=== PATIENT | female | born 1955 | race African-American/Black ===

== ENCOUNTER 2023-10-28 23:55 | Emergency (ER) | payer MEDICARE, OTHER ==
[~2023-10-28] VITALS: Ht 162.6 cm; Wt 72.0 kg
[2023-10-29 00:23] VITALS: TEMP 98.1
[2023-10-29 04:24] LABS: BASOPHILS % (AUTO) 0.8 % (0.0-2.0); EOSINOPHILS % (AUTO) 2.8 % (1.0-6.0); HEMATOCRIT 33.5 % (36-46); HEMOGLOBIN 11.1 g/dL (12.0-16.0); LYMPHOCYTES # (AUTO) 2.1 K/uL (1.0-4.8); LYMPHOCYTES % (AUTO) 30.5 % (22.0-44.0); MEAN CORPUSCULAR HEMOGLOBIN 28.7 pg (26.0-34.0); MEAN CORPUSCULAR HGB CONC 33.2 G/dL (31.0-37.0); MEAN CORPUSCULAR VOLUME 86 fL (80-100); MONOCYTES # (AUTO) 0.7 K/uL (0.1-1.0); MONOCYTES % (AUTO) 10.9 % (2.0-9.0); NEUTROPHILS # (AUTO) 3.8 K/uL (1.8-7.7); PLATELET COUNT (AUTO) 103 K/uL (150-450); RED BLOOD CELL COUNT(AUTO) 3.88 MIL/uL (4.00-5.20); RED CELL DISTRIBUTION WIDTH 15.8 % (11.5-14.5); WHITE BLOOD COUNT (AUTO) 6.8 K/uL (4.5-11.0)
[2023-10-29 05:18] LABS: CALCIUM, TOTAL 8.9 mg/dL (8.8-10.5); CREATININE 1.33 mg/dL (0.60-1.30); POTASSIUM 4.1 mmol/L (3.5-5.1)
[2023-10-29 05:23] LABS: ALBUMIN 2.7 g/dL (3.4-5.0); BILIRUBIN,TOTAL 0.3 mg/dL (0.1-1.0); TOTAL PROTEIN, SERUM 7.2 g/dL (6.4-8.2)
[2023-10-29 06:06] LABS: GLUCOMETER DEV NAME(LOC) ER.6; GLUCOSE,POINT OF CARE 203 MG/DL (70-110)
[2023-10-29 08:48] VITALS: BP 113/70; PULSE 76; RESP 18
== END 2023-10-29 08:30 | disposition home or self-care (01) ==
LOC: EMS 23:56
DX: R73.9 Hyperglycemia, unspecified (principal); R56.9 Unspecified convulsions; I10 Essential (primary) hypertension; F20.9 Schizophrenia, unspecified
CPT/HCPCS: 80053; 82962; 85025; 99283

== ENCOUNTER 2024-06-07 16:41 | Inpatient (IN) | payer MEDICARE, OTHER ==
[~2024-06-07] VITALS: Ht 162.6 cm; Wt 83.2 kg
[~2024-06-07 16:41] MED LIST: ASCO500T20 PO; ASPI-1450 PO; BENZ0.5T52 PO; CALC-884 PO; CHOL25TA4 PO; DIVA-112 PO; FURO20TA4 PO; LEVE-71 PO; LEVO750T68 PO; METO25 PO; MIRT-92 PO; POTA-92 PO; QUET100T34 PO; ZINC220T4 PO
[2024-06-07 17:15] LABS: MONOCYTES # (AUTO) 0.9 K/uL (0.1-1.0)
[2024-06-07 17:18] LABS: BASOPHILS % (AUTO) 0.3 % (0.0-2.0); EOSINOPHILS % (AUTO) 0.1 % (1.0-6.0); HEMATOCRIT 43.8 % (36-46); HEMOGLOBIN 13.6 g/dL (12.0-16.0); LYMPHOCYTES % (AUTO) 14.5 % (22.0-44.0); MEAN CORPUSCULAR HEMOGLOBIN 29.5 pg (26.0-34.0); MEAN CORPUSCULAR VOLUME 95 fL (80-100); NEUTROPHILS # (AUTO) 4.7 K/uL (1.8-7.7); NEUTROPHILS % (AUTO) 71.1 % (40.0-70.0); PLATELET COUNT (AUTO) 86 K/uL (150-450); WHITE BLOOD COUNT (AUTO) 6.6 K/uL (4.5-11.0)
[2024-06-07] MEDS ORDERED: NOREPINEPHRINE 8 MG/0.9 % NACL 250 ML IV ONE (17:25)
[2024-06-07] MEDS ORDERED: DOPamine 400MG/D5W[STANDARD] 250 ML IV ONE (17:25)
[2024-06-07 17:36] LABS: ALANINE AMINOTRANSFERASE 860 U/L (12-78); ALKALINE PHOSPHATASE 132 U/L (46-116); ANION GAP 17 mmol/L (8-16); BILIRUBIN,TOTAL 1.2 mg/dL (0.1-1.0); CALCIUM, TOTAL 8.7 mg/dL (8.8-10.5); CARBON DIOXIDE 19 mmol/L (22-29); CHLORIDE 95 mmol/L (98-107); CREATININE 4.32 mg/dL (0.60-1.30); GLOMERULAR FILTR. RATE CALC 12 mL/min (>60); GLUCOSE,RANDOM 93 mg/dL (70-110); SODIUM SERUM 131 mmol/L (136-145); TOTAL PROTEIN, SERUM 7.5 g/dL (6.4-8.2)
[2024-06-07] MEDS: EPINEPHrine 5 MG in DEXTROSE 5%-WATER 245 ML IV PRN (17:36)
[2024-06-07] MEDS: NOREPINEPHRINE 8 MG/0.9 % NACL 250 ML IV PRN (17:36)
[2024-06-07 17:37] LABS: ASPARTATE AMINOTRANSFERASE 1923 U/L (15-37)
[2024-06-07] MEDS: SODIUM CHLORIDE 0.9% 1,000 ML IV ONE (17:37)
[2024-06-07 17:39] LABS: AMMONIA < 10 umol/L (11-32); LACTIC ACID 9.2 mmol/L (0.4-2.0); POTASSIUM 9.1 mmol/L (3.5-5.1); TROPONIN I-HIGH SENSITIVITY 86 ng/L (<51); UREA NITROGEN, BLOOD 110 mg/dL (7-18)
[2024-06-07] MEDS ORDERED: SODIUM BICARBONATE [ADULT] 8.4% 50 MEQ/50 ML SYRINGE IVP ONE (17:45)
[2024-06-07] MEDS ORDERED: DEXTROSE 50%-WATER 25 GM/50 ML SYRINGE IVP ONE (17:45)
[2024-06-07] MEDS: INSULIN REGULAR, HUMAN 100 UNITS/ML IVP ONE (17:45)
[2024-06-07] MEDS ORDERED: CALCIUM GLUCONATE 0.465 MEQ/ML 10 ML VIAL ONE (17:45)
[2024-06-07] MEDS: CALCIUM GLUCONATE 100 MG/ML 10 ML IVP ONE (17:55)
[2024-06-07] MEDS: ALBUTEROL SULFATE 2.5 MG/0.5 ML NEB SOLUTION NEB ONE (17:55)
[2024-06-07] MEDS: DEXTROSE 50%-WATER 25 GM/50 ML SYRINGE IVP ONE (17:59)
[2024-06-07] MEDS: EPINEPHrine 1:10,000 [1 MG/10 ML] SYRINGE IVP ONE (18:00)
[2024-06-07] MEDS: SODIUM BICARBONATE [ADULT] 8.4% 50 MEQ/50 ML SYRINGE IVP ONE ×2 (18:00→22:20)
[2024-06-07] MEDS ORDERED: ROCURONIUM BROMIDE 10 MG/ML 5 ML VIAL ONE (18:06)
[2024-06-07] MEDS: FUROSEMIDE 40 MG/4 ML VIAL IVP ONE (18:13)
[2024-06-07] MEDS ORDERED: PROPOFOL 1000 MG/ISO-OSM 100 ML IV PRN (18:30)
[2024-06-07 19:00] VITALS: PULSE 78; PULSE 79; RESP 18; O2SAT 99
[2024-06-07] MEDS ORDERED: ACETAMINOPHEN 325 MG TABLET PO PRN (19:00)
[2024-06-07] MEDS ORDERED: BISACODYL 10 MG RECTAL RECTAL SUPPOSITORY PR PRN (19:00)
[2024-06-07] MEDS ORDERED: ONDANSETRON HCL 4 MG/2 ML VIAL IVP PRN (19:00)
[2024-06-07 19:27] LABS: PROTHROMBIN TIME 29.4 SEC (9.4-11.6)
[2024-06-07] MEDS: MIDAZOLAM HCL 100 MG in SODIUM CHLORIDE 0.9% 180 ML IV PRN (19:38)
[2024-06-07] MEDS: VASOPRESSIN 40 UNITS in DEXTROSE 5%-WATER 98 ML IV PRN (19:45)
[2024-06-07] MEDS: VANCOMYCIN 1.5 GM/WATER(PEG) 300 ML IV ONE (20:16)
[2024-06-07] MEDS: PIPERACILLIN/TAZO 3.375 GM/D5W 50 ML IV ONE ×2 (20:16→20:56)
[2024-06-07] MEDS: HYDROCORTISONE SOD SUCC 100 MG/2 ML VIAL IVP ONE (20:17)
[2024-06-07 20:41] LABS: BASE EXCESS,VENOUS BLOOD GAS -21.3 (-2.4-2.3); HCO3,VENOUS BLOOD GAS 8.2 (21.0-28.0); PCO2,VENOUS BLOOD GAS 71 (40-45); PH,VENOUS BLOOD GAS 6.859 (7.360-7.410); SOURCE, BLOOD GAS VENOUS; TEMPERATURE, FAHRENHEIT, BG 98.6 FAHREN (96.0-98.6); TOTAL HEMOGLOBIN,VENOUS BGAS 14.5 (12.0-18.0)
[2024-06-07 20:42] LABS: SITE, BLOOD GAS CENTRAL LINE
[2024-06-07] MEDS: CHLORHEXIDINE GLUCONATE 2% TOWELETTE [2'S/6'S] TP SCH (21:14)
[2024-06-07 21:44] LABS: TROPONIN I-HIGH SENSITIVITY 179 ng/L (<51)
[2024-06-07 22:06] LABS: APPEARANCE,URINE HAZY (CLEAR); BILIRUBIN,URINE NEGATIVE (NEGATIVE); COLOR,URINE YELLOW (YELLOW); GLUCOSE, URINE (UA) NEGATIVE (NEGATIVE); KETONES,URINE TRACE mg/dL (NEGATIVE); LEUKOCYTE ESTERASE ,URINE MODERATE (NEGATIVE); NITRATE,URINE NEGATIVE (NEGATIVE); OCCULT BLOOD,URINE SMALL (NEGATIVE); PROTEIN,URINE 30-70 mg/dL (NEGATIVE)
[2024-06-07 22:13] LABS: ALCOHOL, URINE DRUG SCREEN NEGATIVE (NEGATIVE); AMPHET/METH SCREEN,URINE NEGATIVE (NEGATIVE); BARBITURATE SCREEN, URINE NEGATIVE (NEGATIVE); BENZODIAZEPINES SCREEN,URINE NEGATIVE (NEGATIVE); CANNABINOID SCREEN,URINE NEGATIVE (NEGATIVE); COCAINE SCREEN,URINE NEGATIVE (NEGATIVE); METHADONE SCREEN, URINE NEGATIVE (NEGATIVE); OPIATE SCREEN,URINE NEGATIVE (NEGATIVE); PHENCYCLIDINE SCREEN,URINE NEGATIVE (NEGATIVE)
[2024-06-07 22:13] LABS: BASE EXCESS,VENOUS BLOOD GAS -23.6 (-2.4-2.3); HCO3,VENOUS BLOOD GAS 6.9 (21.0-28.0); PCO2,VENOUS BLOOD GAS 59 (40-45); SOURCE, BLOOD GAS VENOUS; TEMPERATURE, FAHRENHEIT, BG 93.9 FAHREN (96.0-98.6); TOTAL HEMOGLOBIN,VENOUS BGAS 14.3 (12.0-18.0)
[2024-06-07 22:19] LABS: SITE, BLOOD GAS CENTRAL LINE
[2024-06-07 22:30] VITALS: PULSE 80; RESP 24; O2SAT 92
[2024-06-07] MEDS: SODIUM BICARBONATE 150 MEQ in DEXTROSE 5%-WATER 1,000 ML IV SCH (22:50)
[2024-06-07 22:58] LABS: BACTERIA,URINE Many /HPF (None Seen); CALCIUM OXALATE CRYSTALS,UR Few /LPF (None Seen); RBC,URINE 0-2 /HPF (0-2); SQUAMOUS EPITHELIAL CELL,UR Rare /LPF (None Seen)
[2024-06-07 23:40] VITALS: BP 115/78; PULSE 70; RESP 24; TEMP 92.9
[2024-06-07 23:51] VITALS: BP 115/78; PULSE 74; RESP 24
[2024-06-08] VITALS (24 sets, daily range): BP systolic 82–129; BP diastolic 50–88; PULSE 70–109; RESP 22–31; TEMP 89–96.2; O2SAT 0–100
[2024-06-08] MEDS: HEPARIN SODIUM,PORCINE 100 UNITS/ML 5 ML VIAL IVP ONE ×2 (03:43)
[2024-06-08] MEDS: PIPERACILLIN SODIUM/TAZOBACTAM 2.25 GM in DEXTROSE 5%-WATER 50 ML IV SCH (05:30)
[2024-06-08 06:18] LABS: MEAN CORPUSCULAR HEMOGLOBIN 30.2 pg (26.0-34.0); MEAN CORPUSCULAR HGB CONC 31.7 G/dL (31.0-37.0); MEAN CORPUSCULAR VOLUME 95 fL (80-100); PLATELET COUNT (AUTO) 49 K/uL (150-450); RED CELL DISTRIBUTION WIDTH 18.3 % (11.5-14.5)
[2024-06-08 06:26] LABS: CALCIUM, TOTAL 7.8 mg/dL (8.8-10.5); CREATININE 2.84 mg/dL (0.60-1.30); POTASSIUM 5.4 mmol/L (3.5-5.1)
[2024-06-08 06:29] LABS: WHITE BLOOD COUNT (AUTO) 9.5 K/uL (4.5-11.0)
[2024-06-08] MEDS ORDERED: EPINEPHrine 5 MG in DEXTROSE 5%-WATER 245 ML IV PRN (06:30)
[2024-06-08 06:48] LABS: LACTIC ACID 9.4 mmol/L (0.4-2.0)
[2024-06-08 06:56] LABS: ABG BASE EXCESS -10.5 mmol/L (-2.0-3.0); ABG HCO3 16.4 mmol/L (22.0-26.0); ABG METHEMOGLOBIN 0.8 % (0.0-1.5); ABG OXYGEN CONTENT 16.3 mL/dL (15.0-23.0); ABG OXYHEMOGLOBIN 80.5 % (94.0-100.0); ABG PCO2 36 mmHg (35-45); ABG PH 7.275 (7.35-7.450); ABG TOTAL HEMOGLOBIN 14.4 G/dL (12.0-18.0); SOURCE, BLOOD GAS ARTERIAL
[2024-06-08 06:57] LABS: PO2, ARTERIAL BG 42.8 mmHg (79.0-87.0)
[2024-06-08 06:58] LABS: ALLEN TEST, BLOOD GAS POS; O2 DEVICE,BLOOD GAS VENTILATOR (ROOM AIR); SITE, BLOOD GAS RT BRACHIAL; VT, ABG 420 ml
[2024-06-08 06:59] LABS: PEEP,BG 5 cm H2O
[2024-06-08 07:20] LABS: BAND NEUTROPHILS % (MANUAL) 2 % (0-5); LYMPHOCYTES % (MANUAL) 3 % (22-44); MONOCYTES % (MANUAL) 11 % (2-9); SEGMENTED NEUTROPHILS % 84 % (40-70); TOTAL CELLS COUNTED 100
[2024-06-08] MEDS ORDERED: NOREPINEPHRINE 8 MG/0.9 % NACL 250 ML IV ONE (07:40)
[2024-06-08] MEDS: NOREPINEPHRINE 8 MG/0.9 % NACL 250 ML IV PRN (07:57)
[2024-06-08] MEDS: PANTOPRAZOLE SODIUM 40 MG/VIAL IVP SCH (09:40)
[2024-06-08 09:51] LABS: SOURCE, BLOOD GAS ARTERIAL
[2024-06-08 10:03] LABS: ALBUMIN 1.9 g/dL (3.4-5.0); BILIRUBIN,TOTAL 1.9 mg/dL (0.1-1.0); CALCIUM, TOTAL 7.7 mg/dL (8.8-10.5); CREATININE 3.08 mg/dL (0.60-1.30); MAGNESIUM 2.4 mg/dL (1.80-2.40); PHOSPHORUS 6.4 mg/dL (2.5-4.9); TOTAL PROTEIN, SERUM 5.2 g/dL (6.4-8.2)
[2024-06-08] MEDS: ALBUMIN HUMAN 25%-25GM/100ML 100 ML IV ONE (10:08)
[2024-06-08] MEDS: PHENYLEPHRINE 200 MG/D5%-WATER 250 ML IV PRN (10:46)
[2024-06-08] MEDS: VASOPRESSIN 40 UNITS in DEXTROSE 5%-WATER 98 ML IV PRN (10:48)
[2024-06-08] MEDS: MIDAZOLAM HCL 100 MG in SODIUM CHLORIDE 0.9% 180 ML IV PRN (11:38)
[2024-06-08] MEDS ORDERED: HEPARIN SODIUM,PORCINE 1,000 UNITS/ML VIAL IVP ONE (12:00)
[2024-06-08] MEDS: EPINEPHrine 5 MG in DEXTROSE 5%-WATER 245 ML IV PRN (12:27)
[2024-06-08] MEDS ORDERED: NOREPINEPHRINE 8 MG/0.9 % NACL 250 ML IV PRN (12:30)
[2024-06-08] MEDS ORDERED: PHENYLEPHRINE 200 MG/D5%-WATER 250 ML IV PRN (12:30)
[2024-06-08] MEDS ORDERED: VASOPRESSIN 40 UNITS in DEXTROSE 5%-WATER 98 ML IV PRN (12:30)
[2024-06-08] MEDS: *CLINICAL-CEFEPIME DOSING CLINICAL ONE (12:39)
[2024-06-08 13:06] LABS: GLUCOMETER DEV NAME(LOC) ERT.5; GLUCOSE,POINT OF CARE 178 MG/DL (70-110)
[2024-06-08] MEDS ORDERED: VANCOMYCIN 1GM/WATER(PEG/NADA) 200 ML IV PRN (13:45)
[2024-06-08] MEDS ORDERED: SODIUM CHLORIDE 0.9% 250 ML IV ONE (14:21)
[2024-06-08] MEDS: VANCOMYCIN 1GM/WATER(PEG/NADA) 200 ML IV ONE (14:29)
[2024-06-08] MEDS: DOPamine 400MG/D5W[STANDARD] 250 ML IV PRN (15:09)
[2024-06-08 15:54] LABS: ABG BASE EXCESS -16.3 mmol/L (-2.0-3.0); ABG CARBOXYHEMOGLOBIN 0.3 % (0.0-1.5); ABG HCO3 12.4 mmol/L (22.0-26.0); ABG METHEMOGLOBIN 0.2 % (0.0-1.5); ABG OXYGEN SATURATION 99.8 % (95.0-98.0); ABG OXYHEMOGLOBIN 99.3 % (94.0-100.0); ABG PCO2 45 mmHg (35-45); ABG TOTAL HEMOGLOBIN 12.3 G/dL (12.0-18.0); PO2, ARTERIAL BG 303.8 mmHg (79.0-87.0); TEMPERATURE, FAHRENHEIT, BG 94.5 FAHREN (96.0-98.6)
[2024-06-08 15:55] LABS: ABG A-A DIFF O2 370.3 mmHg (10-20.0); ABG PH 7.096 (7.35-7.450); O2 DEVICE,BLOOD GAS VENTILATOR (ROOM AIR); SITE, BLOOD GAS ARTERIAL LINE
[2024-06-08 15:56] LABS: PEEP,BG 8 cm H2O; SPONTANEOUS VT, BG 407 ml; VT, ABG 420 ml
[2024-06-08] MEDS: MetroNIDAZOLE 500 MG/NACL 100 ML IV SCH (16:57)
[2024-06-08] MEDS: CEFEPIME HCL 1 GM in DEXTROSE 5%-WATER 50 ML IV SCH (17:34)
[2024-06-08] MEDS ORDERED: SODIUM CHLORIDE 0.9% 2,000 ML ONE (18:21)
[2024-06-08 20:13] LABS: ABG A-A DIFF O2 262.2 mmHg (10-20.0); ABG BASE EXCESS -14.5 mmol/L (-2.0-3.0); ABG CARBOXYHEMOGLOBIN 0.5 % (0.0-1.5); ABG HCO3 14.1 mmol/L (22.0-26.0); ABG METHEMOGLOBIN 0.3 % (0.0-1.5); ABG OXYGEN CONTENT 16.7 mL/dL (15.0-23.0); ABG OXYGEN SATURATION 97.4 % (95.0-98.0); ABG OXYHEMOGLOBIN 96.6 % (94.0-100.0); ABG PCO2 26 mmHg (35-45); ABG PH 7.292 (7.35-7.450); ABG TOTAL HEMOGLOBIN 12.2 G/dL (12.0-18.0); O2 DEVICE,BLOOD GAS VENT (ROOM AIR); PEEP,BG 8 cm H2O; PO2, ARTERIAL BG 70.9 mmHg (79.0-87.0); SITE, BLOOD GAS ARTERIAL LINE; SOURCE, BLOOD GAS ARTERIAL; VT, ABG 450 ml
[2024-06-08] MEDS: EPINEPHrine 10 MG in DEXTROSE 5%-WATER 240 ML IV PRN (21:34)
[2024-06-08 22:02] LABS: CALCIUM, TOTAL 6.8 mg/dL (8.8-10.5); CREATININE 2.4 mg/dL (0.60-1.30); MAGNESIUM 1.8 mg/dL (1.80-2.40); PHOSPHORUS 4.6 mg/dL (2.5-4.9); POTASSIUM 4.9 mmol/L (3.5-5.1)
[2024-06-08] MEDS ORDERED: DEXTROSE 50%-WATER 25 GM/50 ML SYRINGE IVP PRN (23:15)
[2024-06-08] MEDS: POTASSIUM CHLORIDE 15 MEQ in NXSTAGE RFP-402 K0/CA3 5,000 ML IRRIG PRN (23:53)
[2024-06-09] VITALS (9 sets, daily range): BP systolic 96–118; BP diastolic 52–71; PULSE 64–78; RESP 22–30; TEMP 84.7–92.5; O2SAT 0–100
[2024-06-09] MEDS: SODIUM BICARBONATE 75 MEQ in SODIUM CHLORIDE 0.45% 1,000 ML IV SCH (02:05)
[2024-06-09] MEDS: NOREPINEPHRINE BITARTRATE 16 MG in SODIUM CHLORIDE 0.9% 234 ML IV PRN (03:04)
[2024-06-09 06:17] LABS: HEMATOCRIT 42.4 % (36-46); HEMOGLOBIN 13.5 g/dL (12.0-16.0); MEAN CORPUSCULAR HEMOGLOBIN 30.2 pg (26.0-34.0); MEAN CORPUSCULAR HGB CONC 31.9 G/dL (31.0-37.0); MEAN CORPUSCULAR VOLUME 95 fL (80-100); PLATELET COUNT (AUTO) 22 K/uL (150-450); RED BLOOD CELL COUNT(AUTO) 4.48 MIL/uL (4.00-5.20); RED CELL DISTRIBUTION WIDTH 18.9 % (11.5-14.5)
[2024-06-09 06:20] LABS: WHITE BLOOD COUNT (AUTO) 8.7 K/uL (4.5-11.0)
[2024-06-09] MEDS: INSULIN LISPRO 100 UNITS/ML SQ PRN (06:21)
[2024-06-09 06:35] LABS: TROPONIN I-HIGH SENSITIVITY 256 ng/L (<51)
[2024-06-09 06:37] LABS: ALBUMIN 2.5 g/dL (3.4-5.0); BILIRUBIN,TOTAL 4.3 mg/dL (0.1-1.0); CREATININE 1.6 mg/dL (0.60-1.30); POTASSIUM 4.6 mmol/L (3.5-5.1); TOTAL PROTEIN, SERUM 5.6 g/dL (6.4-8.2)
[2024-06-09 06:41] LABS: GLUCOMETER DEV NAME(LOC) ICUN.5; GLUCOSE,POINT OF CARE 312 MG/DL (70-110)
[2024-06-09 06:41] LABS: GLUCOMETER DEV NAME(LOC) ICUN.5; GLUCOSE,POINT OF CARE 314 MG/DL (70-110)
[2024-06-09 08:20] LABS: BAND NEUTROPHILS % (MANUAL) 15 % (0-5); LYMPHOCYTES % (MANUAL) 5 % (22-44); MONOCYTES % (MANUAL) 9 % (2-9); SEGMENTED NEUTROPHILS % 71 % (40-70); TOTAL CELLS COUNTED 100
[2024-06-09 08:21] LABS: MAGNESIUM 1.7 mg/dL (1.80-2.40); PHOSPHORUS 2.9 mg/dL (2.5-4.9)
[2024-06-09] MEDS: VANCOMYCIN 750 MG/WATER(PEG) 150 ML IV SCH (09:19)
[2024-06-09] MEDS ORDERED: MAGNESIUM SULFATE 1 GM in DEXTROSE 5%-WATER 50 ML IV ONE (10:45)
[2024-06-09] MEDS ORDERED: PIPERACILLIN/TAZO 3.375 GM/D5W 50 ML IV SCH (12:00)
[2024-06-09] MEDS ORDERED: CEFEPIME HCL 1 GM in DEXTROSE 5%-WATER 50 ML IV SCH (13:00)
== END 2024-06-09 14:45 | DRG 871 ==
LOC: EMS 16:42 → EDBD 16:42 → EDH 18:59 → ICU 06-08 13:21
PROVIDERS: ADMIT Internal Medicine; ATTEND Internal Medicine
PROC: 5A1945Z Respiratory Ventilation, 24-96 Consecutive Hours (ICD-10-PCS; principal; 2024-06-07)
PROC: 0BH17EZ Insertion of Endotracheal Airway into Trachea, Via Natural or Artificial Opening (ICD-10-PCS; 2024-06-07)
PROC: 5A1D70Z Performance of Urinary Filtration, Intermittent, Less than 6 Hours Per Day (ICD-10-PCS; 2024-06-07)
PROC: 5A12012 Performance of Cardiac Output, Single, Manual (ICD-10-PCS; 2024-06-08)
DX: A41.9 Sepsis, unspecified organism (principal); G92.8 Other toxic encephalopathy; I50.23 Acute on chronic systolic (congestive) heart failure; J96.01 Acute respiratory failure with hypoxia; K72.00 Acute and subacute hepatic failure without coma; N17.0 Acute kidney failure with tubular necrosis; R65.21 Severe sepsis with septic shock; I47.21 Torsades de pointes; E87.1 Hypo-osmolality and hyponatremia; E87.20 Acidosis, unspecified; I13.0 Hypertensive heart and chronic kidney disease with heart failure and stage 1 through stage 4 chronic kidney disease, or unspecified chronic kidney disease; I42.9 Cardiomyopathy, unspecified; I44.2 Atrioventricular block, complete; Z99.11 Dependence on respirator [ventilator] status; E87.5 Hyperkalemia; I46.9 Cardiac arrest, cause unspecified; D69.6 Thrombocytopenia, unspecified; E83.42 Hypomagnesemia; F79 Unspecified intellectual disabilities; R62.50 Unspecified lack of expected normal physiological development in childhood; F32.A Depression, unspecified; F20.9 Schizophrenia, unspecified; G40.909 Epilepsy, unspecified, not intractable, without status epilepticus; I49.5 Sick sinus syndrome; Z95.0 Presence of cardiac pacemaker; Z79.899 Other long term (current) drug therapy; N18.31 Chronic kidney disease, stage 3a
CPT/HCPCS: 36600; 51702; 70450; 71045; 80048; 80053; 80307; 81001; 82140; 82805; 82962; 83605; 83615; 83735; 83880; 84100; 84132; 84484; 85025; 85610; 87040; 87081; 87086; 87186; 87340; 87481; 90935; 90947; 92950; 93005; 93306; 94002; 94003; 99285; C9113; J0171; J0610; J0692; J1265; J1642; J1644; J1720; J1815; J1940; J2250; J2370; J2543; J3475; J3480; J3490; J7030; J7050; J7060; P9046; 36415-L1; 36415-TC; J7613